=== PATIENT | male | born 1975 | race Caucasian/White ===

== ENCOUNTER → 2018-03-15 06:31 | Outpatient (CLI) | payer OTHER, SELFPAY ==
--- NOTE | 2018-03-15 06:38 | MRI_ITS ---
STUDY: MRI RIGHT FOREFOOT WITHOUT CONTRAST REASON FOR EXAM: Pain in the distal metatarsal area, injury 06/25/2014, heel spur and tendon surgery in June 2015. TECHNIQUE: Standardized fat and water weighted pulse sequences were obtained in all 3 orthogonal planes. COMPARISON: MRI ankle images 06/02/2016 and radiographs 06/26/2015. FINDINGS: Normal metatarsophalangeal joint of the hallux. Normal tibial and fibular sesamoids, with normal sesamoids-first metatarsal articulations. Normal interphalangeal joint of the hallux. Normal proximal and distal phalanges of the great toe. Normal medial and lateral heads of the flexor hallucis brevis tendons. Normal flexor and extensor hallucis longus tendons. Normal second through fifth metatarsophalangeal (MTP) joints. Normal interphalangeal joints of the second through fifth toes. Normal proximal, middle and distal phalanges of the second through fifth toes. Normal first through fourth intermetatarsal spaces. Normal flexor and extensor tendons of the second through fifth toes. Normal metatarsals. Normal tarsometatarsal articulations. Normal Lisfranc ligament. Normal intrinsic muscles of the forefoot. There is no demonstrated soft tissue abnormality. MRI/Lower Ext/No Jt/w/o IMPRESSION: Unremarkable MRI of the right forefoot without demonstrated metatarsal stress fracture. Electronically Signed: Jason Thao MD at 10:17 EST Tel , Service support ,
== END ==
PROVIDERS: Family Provider Family Medicine; PCP Family Medicine; Referring Provider Podiatrist; Visit Provider Podiatrist
DX: M72.2 Plantar fascial fibromatosis (principal); S93.601A Unspecified sprain of right foot, initial encounter
CPT/HCPCS: 73718

== ENCOUNTER 2019-02-15 01:22 | Emergency (ER) | payer OTHER, SELFPAY ==
[2019-02-15 01:23] VITALS: BP 157/97; PULSE 95; RESP 20; TEMP 36.8; O2SAT 95; BMI 31.5
[2019-02-15 01:26] VITALS: O2SAT 94
[2019-02-15 01:29] VITALS: BP 157/97; PULSE 100; RESP 18; TEMP 36.8; O2SAT 96
--- NOTE | 2019-02-15 01:53 | RAD_ITS ---
STUDY: X-RAY - UNILATERAL RIBS ( LEFT ) WITH CHEST REASON FOR EXAM: Male, 43 years old. PAIN LEFT LOWER POSTERIOR RIBS, COUGHING TECHNIQUE - RIBS: 3 view(s) of the ribs. TECHNIQUE - CHEST: Single frontal view of the chest. COMPARISON: Chest 06/11/2015 FINDINGS - RIBS: Normal visualized ribs without a demonstrated fracture. FINDINGS - CHEST: The lungs are clear and expanded. There is no demonstrated pleural abnormality. Normal size heart. Normal mediastinum and rafita. Normal visualized pulmonary arteries. Normal visualized aortic arch and descending thoracic aorta. Normal visualized thoracic spine. Normal visualized ribs, clavicles, and shoulders. There is no demonstrated abnormality of the visualized soft tissue structures of the upper abdomen. RAD/Ribs Uni Min 3V w/PA Chest IMPRESSION: RIBS: Normal x-ray examination of the ribs. CHEST: Normal x-ray examination of the chest. Electronically Signed: Jacobo Soto MD at 2:25 EST Tel , Service support ,
[2019-02-15] MEDS: diazePAM 5 MG Tablet PO (02:12)
--- NOTE | 2019-02-15 03:17 | ED.DCSUM_ITS ---
- ER Visit Summary Date of Service: 02/15/19 Chief Complaint: Left-sided rib pain History of Present Illness: The patient is a 43 M presenting with cough and left-sided rib pain. Patient states he has had a cough for the past 2 weeks. Tonight he was coughing harshly and felt a pop in his left ribs. He did not take any medication prior to arrival. He does have multiple sick contacts. He denies fever. Denies other complaints. Physical Examination: Vitals are stable. Patient is afebrile. Alert no acute distress. Pulse ox 100% on room air. HEENT exam is unremarkable. Neck is supple. Lungs are clear and equal bilaterally. Left chest wall tenderness with no crepitus Heart is regular rate and rhythm. Abdomen is soft nontender nondistended. Extremities are unremarkable. Skin is warm and dry. No focal neurologic deficit. Remainder of exam is unremarkable. Emergency Department Course and Treatment: Left rib series shows RIBS: Normal x-ray examination of the ribs. CHEST: Normal x-ray examination of the chest. Patient was given Valium. On reevaluation, he has improvement of his symptoms. He is given prescription for Naprosyn and Flexeril. Advised to follow-up with his primary care physician. Advised return to ED for worsening complaints. Disposition: Discharge home Impression: Chest wall strain This note was generated with [employer] dictation software. It may contain incorrect words, spelling, and punctuation that were not noted in review of the chart prior to signing ED Disposition - Plan for ED Patient: Disposition: Home or Assisted Living Instructions: Chest Wall Strain Prescriptions: cycloBENZAPRine HCl [Flexeril] 10 mg PO TID PRN #20 tab PRN Reason: Muscle Spasm Prescription Printed Naproxen [Naprosyn] 500 mg PO BID PRN #20 tab Prescription Printed Referrals: Jacobo Vieira MD [Primary Care Provider] -
[2019-02-15 03:35] VITALS: BP 122/87; PULSE 84; RESP 17; O2SAT 97
--- NOTE | 2019-02-15 03:35 | ED.DEP ---
ED Disposition - Plan for ED Patient: Instructions: Chest Wall Strain Prescriptions: cycloBENZAPRine HCl [Flexeril] 10 mg PO TID PRN #20 tablet PRN Reason: Muscle Spasm Naproxen [Naprosyn] 500 mg PO BID PRN #20 tablet Referrals: Jacobo Vieira MD [Primary Care Provider] -
== END 2019-02-15 03:46 | disposition home or self-care (01) ==
LOC: ED 01:56
PROVIDERS: Emergency Provider Emergency Medicine; Family Provider Family Medicine; PCP Family Medicine
DX: S29.011A Strain of muscle and tendon of front wall of thorax, initial encounter (principal); X50.0XXA Overexertion from strenuous movement or load, initial encounter; Y93.89 Activity, other specified; Y92.89 Other specified places as the place of occurrence of the external cause; Y99.8 Other external cause status
CPT/HCPCS: 71101; 99283